=== PATIENT | male | born 2000 ===

== ENCOUNTER 2021-09-22 14:02 | Emergency (ER) | payer MEDICAID ==
[2021-09-22 15:19] LABS: CORONAVIRUS COVID-19 NAA NEGATIVE (NEGATIVE)
[2021-09-22 17:12] LABS: ANION GAP 15.1 mEq/L (7-13); CHLORIDE,CL 104 mmol/L (98-107); SODIUM,NA 142 mmol/L (136-145)
== END 2021-09-22 18:16 | disposition home or self-care (01) ==
LOC: DL.ED 14:02
DX: J40 Bronchitis, not specified as acute or chronic (principal); Z20.822 Contact with and (suspected) exposure to COVID-19
CPT/HCPCS: 0240U; 36415; 71045; 80053; 85025; 85379; 99283